=== PATIENT | female | born 1975 | race Hispanic/Latino ===

== ENCOUNTER 2016-12-03 12:15 | Day surgery (SDC) | payer OTHER ==
[~2016-12-03] VITALS: Ht 157.5 cm; Wt 132.4 kg
[~2016-12-03 12:15] MED LIST: ALBU8.5H2 INHALATION; ASPI-973 PO; Lactated Ringer's 1,000 ML IV ONE; METF500T4 PO; OMEP20CA11 PO; ONDA-54 PO; OXYC-474 PO; PRAV10TA2 PO; SPIR50TA2 PO; mirena IMPLANT; ranitidine
[2016-12-03] MEDS ORDERED: Propofol 10,000 mCg/mL 20 mL Inj ONE (12:16)
[2016-12-03 12:44] VITALS: BP 108/66; PULSE 86; RESP 17; O2SAT 95
[2016-12-03] MEDS ORDERED: MELO7.5O PO (12:49)
[2016-12-03] MEDS ORDERED: DULO30CA50 PO (12:49)
[2016-12-03] MEDS ORDERED: Lactated Ringer's 1,000 ML IV SCH (13:54)
--- NOTE | 2016-12-03 13:54 | PCM.HPANE ---
Patient Data Date of Service: Dec 03, 2016 Surgeon Admitting Provider: Attending Provider:Erik Aguilar MD Primary Care Physician:Edil Ivory MD Other Provider:Denys Jolly Anesthesia Reason for Visit Diarrhea, Epigastric Pain Ht/WT & BMI Height (Feet): 5 Height (Inches): 2 Weight (Kilograms): 132.45 Body Mass Index 53.00 Allergies Coded Allergies: No Known Drug Allergies (Verified Allergy, Unknown, 12/02/16) Past Anesthesia History Anesthesia History: Denies:: Abnormal Airway, Anesthesia Reactions, Difficult Intubation, Fam Anesthesia Reaction, Fam Malignant Hypertherm, Malignant Hyperthermia Diabetes History Hx Diabetes?: Yes Type of Diabetes: Type II Glycemic Control: Oral Medication Current Bedside Blood Glucose: 92 MRSA MRSA: No Medications Hypertension Medication: No Home Meds Incl Beta Rajiv: No Reported Medications Duloxetine 30 Mg Capsule.dr30 Mg PO DAILY Ref 0 12/03/16 Meloxicam 7.5 Mg/5 Ml Oral.susp7.5 Mg PO DAILY 30 Days Ref 0 12/03/16 Oxycodone (Roxicodone)5 Mg Tablet5 Mg PO Q4H PRN For Pain Ref 0 12/02/16 Omeprazole 20 Mg Capsule.dr20 Mg PO BID Ref 0 12/02/16 Aspirin 81 Mg Vkgdbs69 Mg PO DAILY Ref 0 12/02/16 [mirena] 20 mcg/24hr No Conflict Check20 Mcg IMPLANT DAILY 06/11/16 Spironolactone 50 Mg Jwnlzm18 Mg PO DAILY #30 TABLET Ref 0 05/17/16 [ranitidine ] No Conflict Snhmu358 Mg BID 01/09/16 Pravastatin 10 Mg Eyfhsd89 Mg PO HS Ref 0 01/09/16 Metformin 500 Mg Qehhvl659 Mg PO BID Ref 0 01/09/16 Albuterol HFA (Proair HFA)8.5 Gm Hfa.aer.ad2 Puffs INHALATION Q4H PRN For Shortness of Breath #1 INHALER 01/09/16 Discontinued Reported Medications Ondansetron 8 Mg Tablet8 Mg PO 12/02/16 Beclomethasone Dipropionate (Qvar)8.7 Gm Aer.w.adap1 Puff INHALATION BID #8.7 GM 06/12/16 Medroxyprogesterone 10 Mg Jfsrrs29 Mg PO DAILY 06/11/16 Hydrocodone-Acetaminophen 5-325 mg 1 Each Tablet1 Tablet PO Q12H PRN For Pain Ref 0 05/17/16 History History of ENT Problems?: No HEENT History: Positive for:: Dysphagia (INTERMITTENT W/ SOLID FOOD) Denies:: Abnormal Airway Difficult Intubation Hearing Problem Hx of Heart Problems?: No Cardiovascular History: Denies:: Edema Heart Murmur Irregular Heartbeat Pacemaker Hx of Respiratory Problem?: Yes Respiratory History: Positive for:: Asthma Use of C-PAP Machine Denies:: COPD Cough Dyspnea Emphysema Hemoptysis Oxygen Administration Pneumonia Tuberculosis Other Resp Pertinent History: CIERRA+ W/ NIGHTLY CPAP USE Hx Neurologic Problems?: No Neurological History: Denies:: CVA Dementia Headaches Multiple Sclerosis Parkinson's Disease Seizures Hx of GI Problems?: Yes Gastrointestinal History: Positive for:: Gastroesphageal Reflux Liver Disease (ELEVATED LFT) Rectal Bleeding (BRB) Denies:: Cirrhosis Diverticulitis Gall Bladder Disease Hiatal Hernia Hx of Problems?: No Genitourinary History: Denies:: Kidney Stones Urinary Tract Infection Female Hx: Denies:: Currently Problems with Breasts? Skin History: Denies:: History Skin Disorders? Pressure Ulcers Hx Musculoskeletal Problems?: Yes Musculoskeletal History: Positive for:: Fibromyalgia Musculoskeletal Trauma (left knee current admission problem) Denies:: Joint Replacement Hx of Psycho/Social Problems?: No Psycho Social History: Positive for:: Anxiety Hx Depression Hx Surgeries?: Yes (L KNEE ARTHRO, L SHOULDER MASS, L OVARY REMOVAL) Hx Any Other Health Problems?: Yes Other History: Denies:: Cancer Thyroid Disease History Blood Transfusions: Denies:: Blood Transfusions Hx Diabetes: YesBedside Blood Glucose: 92 Hx Alcohol Use: NoHx Substance Use: No Smoking Status: Current Every Day Smoker Have You Smoked inLast 12 mo: Yes Stop/Bang Treated for Sleep Apnea?: Yes Do You Have a CPAP Machine?: Yes (COMPLIANT W/ NIGHTLY USE) CIERRA Risk Assessment: High Risk, =/>3 Yes Risk Assessment Category Category 1A: Patient has history of documented sleep apnea, and HAS NOT received any narcotic, sedative or anesthesia administration during this stay. Category 1B: Patient has history of documented sleep apnea, and HAS received any narcotic , sedative or anesthesia administration during this stay Category 2: Patient has SUSPECTED Obstructive Sleep Apnea, and HAS received any narcotic , sedative or anesthesia administration during this stay. Category 3: Patient has SUSPECTED Obstructive Sleep Apnea and HAS NOT received narcotic, sedative or anesthesia administration during this stay. Category 4: Outpatient in Procedural Areas with known sleep apnea or who screen positive for High Risk via the STOP/BANG questionnaire. Exam Exam Vital Signs Vital Signs Date Time Temp Pulse Resp B/P Pulse Ox O2 Delivery O2 Flow Rate FiO2 12/03/16 12:44 36.6 86 17 108/66 95 Room Air General Appearance: Alert, Oriented X3, Cooperative HEENT/AIRWAY: MP 3, Neck Movement (Thick), Mouth Opening (Wide) Lungs: Clear to Auscultation, Normal Air Movement Heart: Regular Rate/Rhythm, Normal S1, Normal S2 Meds/Labs/Diagnostics Bedside Blood Glucose: 92 Plan Impression Patient chart reviewed, patient interviewed and anesthestic plan with risks, benefits, and alternatives discussed, and informed consent obtained. NPO Status: 06/11/16 ASA Physical Status: ASA3 Severe Disease Anesthetic Plan: MAC Bene/Risks/Altern/Consents: Yes HP Complete Prior to Induction: Yes Chito Song MD Dec 03, 2016 13:53
[2016-12-03] MEDS ORDERED: Ondansetron 2 mg/mL 2 mL Inj IVPUSH PRN (13:55)
[2016-12-03] MEDS ORDERED: MetoCLOpramide 5 mg/mL 2 mL Inj IVPUSH PRN (13:55)
[2016-12-03 14:35] VITALS: BP 105/78; PULSE 104; RESP 20; O2SAT 100
--- NOTE | 2016-12-03 14:38 | PCM.ANEP1 ---
Post Anesthesia Phase 1 PACU Phase 1 Assessment Date of Service: Dec 03, 2016 Vital Signs Vital Signs Date Time Temp Pulse Resp B/P Pulse Ox O2 Delivery O2 Flow Rate FiO2 12/03/16 14:35 35.7 104 20 105/78 100 OxyMask 10 12/03/16 12:44 36.6 86 17 108/66 95 Room Air Anesthetic Administered: MAC Level of Alertness: Sleepy, easy to arouse GRIFFIN's with Equal Strength: Yes Pain: No Nausea or Vomiting: No Oxygen Delivery: Simple Mask Lungs: Normal Air Movement Chito Song MD Dec 03, 2016 14:38
--- NOTE | 2016-12-03 14:43 | PCM.ANEP2 ---
Post Anesthesia Evaluation ASA/CMS Post Anesthesia Date of Service: Dec 03, 2016 VS in Patient's Normal Range?: Yes Resp Stable; Airway Patent?: Yes CV Function & Hydration Stable: Yes Mental Status Recovered?: Yes Pain control Satisfactory?: Yes N/V Control Satisfactory?: Yes Chito Song MD Dec 03, 2016 14:43
[2016-12-03 14:44] VITALS: BP 123/66; PULSE 94; RESP 16; O2SAT 98
[2016-12-03 14:51] VITALS: BP 88/70; PULSE 94; RESP 14; O2SAT 100
--- NOTE | 2016-12-03 14:53 | ENDO ---
[address] [address] ENDOSCOPY PROCEDURE PATIENT: AMIRA JUDGE : 1975 MR#: [id number] ADMIT: 12/03/2016 JOB ID: [id number] DATE: 12/03/2016 TYPE OF OPERATION: 1. Esophagogastroduodenoscopy with biopsy. 2. Colonoscopy with biopsy. PREOPERATIVE DIAGNOSIS(ES): 1. Abdominal pain. 2. GERD. 3. Diarrhea. POSTOPERATIVE DIAGNOSIS(ES): 1. Normal upper endoscopy, status post biopsy. 2. Small internal hemorrhoids. ANESTHESIA: Monitored anesthesia care. COMPLICATIONS: None. BLOOD LOSS: Minimal. DESCRIPTION OF PROCEDURE: After risks and benefits have been explained to the patient, informed consent was obtained. After anesthesia administered, upper endoscope was then inserted into the mouth and intubated into the esophagus, stomach, second portion of duodenum. Mucosa carefully examined. After procedure was done, the scope withdrawn and procedure terminated. A colonoscope was then inserted from the rectum to the terminal ileum. Mucosa carefully examined. Prep of the patient was excellent. After procedure was done, the scope withdrawn and procedure terminated. FINDINGS: Upon inspection of the esophagus, the esophagus was normal without masses, ulcers or lesions. Z-line located 40 cm from incisors. Upon entering the stomach, the stomach was also normal without masses, ulcers or lesions. Retroflexion was normal. Duodenal bulb, first and second portion normal. Biopsies taken of the duodenum, antrum and body of the stomach and mid and distal esophagus. Upon inspection of the anus, no masses, hemorrhoids, ulcers or fissures that were seen. Throughout the entire examination, there were there were no polyps, masses or lesions. Biopsies taken of the terminal ileum and random colon. Retroflexion showed small internal hemorrhoids. IMPRESSION: 1. Small internal hemorrhoids. 2. Normal upper endoscopy, status post biopsy. RECOMMENDATION: Await pathology results. Followup in GI clinic as needed.
--- NOTE | 2016-12-05 16:19 | PATH ---
SURGICAL PATHOLOGY Attending Physician:Erik Aguilar MD CASE STATUS: Signed Out PATIENT NAME: AMIRA JUDGE PID: [id number] : 1975 DATE COLLECTED:12/03/2016 00:00 SPECIMEN: 1: Duodenum, Biopsy 2: Stomach, Antrum, Biopsy 3: Gastric, Biopsy 4: Esophagus, Biopsy 5: Small Intestine/Bowel, Biopsy 6: Colon, Biopsy CLINICAL HISTORY: 1). DUODENAL BX 2). ANTRUM BX 3). GASTRIC BX 4). DISTAL ESOPHAGUS 5). TI BX 6). RANDOM COLON BX FINAL DIAGNOSIS: 1. Duodenal Biopsy: Duodenal mucosa with no diagnostic alterations. Negative for inflammation, celiac, dysplasia and malignancy. 2. Antrum, Biopsy: Gastric antral mucosa with no diagnostic alterations. Negative for Helicobacter organisms. Negative for intestinal metaplasia. Negative for dysplasia and malignancy. 3. Gastric Biopsy: Gastric body mucosa with no diagnostic alterations. Negative for intestinal metaplasia. Negative for Helicobacter organisms. Negative for dysplasia and malignancy. 4. Distal Esophagus, Biopsy: Esophageal squamous mucosa with mild chronic inflammation. Negative for intestinal metaplasia. Negative for dysplasia and malignancy. Eosinophils are not increased. 5. TI biopsy: Small bowel mucosa with no diagnostic alterations. Negative for inflammation, granulomas, dysplasia and malignancy. 6. Random Colon Biopsy: Colonic mucosa with no diagnostic alterations. Negative for inflammation, dysplasia and malignancy. ICD10: R10.9 GROSS DESCRIPTION: The specimen is received in six formalin filled containers labeled with the patient's name. 1). The specimen is sublabeled "duodenal" and consists of a 0.4 x 0.3 x 0.3 CM portion of tissue which is entirely submitted in cassette 1A. 2). The specimen is sublabeled "antrum" and consists of a 0.3 x 0.3 x 0.3 CM portion of tissue which is entirely submitted in cassette 2A. 3). The specimen is sublabeled "gastric" and consists of a 0.4 x 0.3 x 0.2 CM portion of tissue which is entirely submitted in cassette 3A. 4). The specimen is sublabeled "distal esophagus" are 2 fragments of tissue which aggregate to 0.4 x 0.3 x 0.2 CM. The specimen is entirely submitted in cassette 4A. 5). The specimen is sublabeled " TI " and consists of a 0.4 x 0.4 x 0.3 CM portion of tissue which is entirely submitted in cassette 5A. 6). The specimen is sublabeled "random colon" and consists of 5 portions of tissue which aggregate to 0.6-0.6 x 0.3 CM. The specimen is entirely submitted in cassette 6A. 12/04/2016 DAC MICRO DESCRIPTION: Please see diagnosis. ICD-9 CODES: CPT CODES: 1: 14105 2: 15945 3: 04774 4: 80869 5: 43727 6: 11387 Electronically Signed Out Maribel Lawson MD [facility] [address], [place] [address] Technical component performed at [facility], [facility] [address], [place], [address]
[2017-01-02] MEDS ORDERED: DICY10CA56 PO (11:21)
[2017-01-02] MEDS ORDERED: ZOF8 PO (11:21)
== END 2016-12-03 23:59 | disposition home or self-care (01) ==
LOC: END 12:15
PROVIDERS: ATTEND Internal Medicine Gastroenterology
DX: R10.31 Right lower quadrant pain (principal); K62.5 Hemorrhage of anus and rectum; R19.7 Diarrhea, unspecified; K64.8 Other hemorrhoids; K21.9 Gastro-esophageal reflux disease without esophagitis; G47.33 Obstructive sleep apnea (adult) (pediatric); E11.9 Type 2 diabetes mellitus without complications; I10 Essential (primary) hypertension; E66.01 Morbid (severe) obesity due to excess calories; F32.9 Major depressive disorder, single episode, unspecified; F41.9 Anxiety disorder, unspecified; F17.210 Nicotine dependence, cigarettes, uncomplicated; Z79.82 Long term (current) use of aspirin; Z79.84 Long term (current) use of oral hypoglycemic drugs; Z68.43 Body mass index [BMI] 50.0-59.9, adult; J45.909 Unspecified asthma, uncomplicated
CPT/HCPCS: 43239; 45380; 99153; G0500; J7120

== ENCOUNTER 2017-01-03 11:27 | Day surgery (SDC) | payer OTHER ==
[2017-01-03] VITALS (10 sets, daily range): BP systolic 103–141; BP diastolic 53–89; PULSE 77–108; RESP 12–19; O2SAT 97–100
[~2017-01-03] VITALS: Ht 157.5 cm; Wt 132.8 kg
[~2017-01-03 11:27] MED LIST changes: +DICY10CA56 PO; +DULO30CA50 PO; -Lactated Ringer's 1,000 ML IV ONE; -ONDA-54 PO; +ZOF8 PO; -ranitidine
[2017-01-03] MEDS ORDERED: Rocuronium 10 mg/mL 5 mL Inj ONE (11:28)
[2017-01-03] MEDS ORDERED: Ondansetron 2 mg/mL 2 mL Inj ONE (11:28)
[2017-01-03] MEDS ORDERED: Dexamethasone 4 mg/mL Inj ONE (11:28)
[2017-01-03] MEDS ORDERED: Succinylcholine Chloride 20 mg/mL 5 mL Inj ONE (11:28)
[2017-01-03] MEDS ORDERED: Propofol 10,000 mCg/mL 20 mL Inj ONE (11:28)
[2017-01-03] MEDS ORDERED: Remifentanil 1 mg/3 mL Inj ONE (11:28)
[2017-01-03] MEDS ORDERED: fentaNYL-PF 50 mCg/mL 2 mL Inj ONE ×2 (11:28→18:20)
[2017-01-03] MEDS: Lactated Ringer's 1,000 ML IV SCH ×2 (12:00→16:03)
[2017-01-03] MEDS ORDERED: Lactated Ringer's 1,000 ML IV SCH (16:06)
[2017-01-03] MEDS ORDERED: Lactated Ringer's 500 ML IV PRN (16:06)
--- NOTE | 2017-01-03 16:06 | PCM.HPANE ---
Patient Data Surgeon Admitting Provider: Attending Provider:Soham Scott MD Primary Care Physician:Edil Ivory MD Other Provider:Denys Jolly Anesthesia Reason for Visit Abnormal Uterine Bleeding Ht/WT & BMI Height (Feet): 5 Height (Inches): 2.00 Weight (Kilograms): 132.8 Body Mass Index 53.00 Allergies Coded Allergies: No Known Drug Allergies (Verified Allergy, Unknown, 01/02/17) Past Anesthesia History Anesthesia History: Denies:: Abnormal Airway, Anesthesia Reactions, Difficult Intubation, Fam Anesthesia Reaction, Fam Malignant Hypertherm, Malignant Hyperthermia Diabetes History Hx Diabetes?: Yes Type of Diabetes: Type II Glycemic Control: Oral Medication Current Bedside Blood Glucose: 97 MRSA MRSA: No Medications Blood Thinner: Aspirin Hypertension Medication: Yes (SPIRONALACTONE FOR PCOS) Home Meds Incl Beta Rajiv: No Reported Medications Dicyclomine (Bentyl)10 Mg Xxdotxw24 Mg PO QID PRN PRN 01/02/17 Ondansetron (Zofran)8 Mg Tablet8 Mg PO Q6H PRN For Nausea 01/02/17 Duloxetine 30 Mg Capsule.dr30 Mg PO DAILY Ref 0 12/03/16 Oxycodone (Roxicodone)5 Mg Tablet5 Mg PO Q4H PRN For Pain Ref 0 12/02/16 Omeprazole 20 Mg Capsule.dr20 Mg PO BID Ref 0 12/02/16 Aspirin 81 Mg Bhuvji64 Mg PO DAILY Ref 0 12/02/16 [mirena] 20 mcg/24hr No Conflict Check20 Mcg IMPLANT DAILY 20mcg/24h 06/11/16 Spironolactone 50 Mg Wgftlc89 Mg PO DAILY #30 TABLET Ref 0 05/17/16 Pravastatin 10 Mg Ljnjfw91 Mg PO HS Ref 0 01/09/16 Metformin 500 Mg Jinidt418 Mg PO BID Ref 0 01/09/16 Albuterol HFA (Proair HFA)8.5 Gm Hfa.aer.ad2 Puffs INHALATION Q4H PRN For Shortness of Breath #1 INHALER 01/09/16 Discontinued Reported Medications Meloxicam 7.5 Mg/5 Ml Oral.susp7.5 Mg PO DAILY 30 Days Ref 0 12/03/16 [ranitidine ] No Conflict Kfjmt515 Mg BID 01/09/16 History History of ENT Problems?: Yes HEENT History: Positive for:: Dysphagia (INTERMITTENT W/ SOLID FOOD) Denies:: Abnormal Airway Difficult Intubation Hearing Problem Hx of Heart Problems?: Yes Cardiovascular History: Positive for:: Chest Pain (EKG WNL) Hypertension (hyperlipidemia) Denies:: Edema Heart Murmur Irregular Heartbeat Pacemaker Hx of Respiratory Problem?: Yes Respiratory History: Positive for:: Asthma Use of C-PAP Machine (CIERRA+ W/ CPAP SLEEP STUDY 11/2015) Use of Inhalers / NEBS Denies:: COPD Cough Dyspnea Emphysema Hemoptysis Oxygen Administration Pneumonia Tuberculosis Hx Neurologic Problems?: Yes Neurological History: Denies:: CVA Dementia Headaches Multiple Sclerosis Parkinson's Disease Seizures Other Neurological Pertinent: RLS Hx of GI Problems?: Yes Gastrointestinal History: Positive for:: Gastroesphageal Reflux Liver Disease (HX ELEVATED LFT'S) Rectal Bleeding (BRB (LIKELY FROM SMALL INTERNAL HEMORRHOIDS)) Denies:: Cirrhosis Diverticulitis Hiatal Hernia Hx of Problems?: No Genitourinary History: Denies:: Kidney Stones Urinary Tract Infection Female Hx: Denies:: Currently Problems with Breasts? Skin History: Positive for:: History Skin Disorders? Denies:: Pressure Ulcers Hx Musculoskeletal Problems?: Yes Musculoskeletal History: Positive for:: Fibromyalgia Musculoskeletal Trauma (S/P LT KNEE SCOPE/MENISECTOMY) Denies:: Joint Replacement Hx of Psycho/Social Problems?: Yes Psycho Social History: Positive for:: Anxiety Hx Depression Hx Surgeries?: Yes (L KNEE ARTHRO, L SHOULDER MASS, L OVARY REMOVAL) Hx Any Other Health Problems?: Yes Other History: Denies:: Cancer Endocrine Disease Hospitalization Thyroid Disease History Blood Transfusions: Denies:: Blood Transfusions Hx Diabetes: YesBedside Blood Glucose: 97 Hx Alcohol Use: NoHx Substance Use: No Smoking Status: Light Tobacco Smoker Have You Smoked inLast 12 mo: Yes Stop/Bang S-Snoring: Do You Snore Loudly: Yes T-Tired: feel tired, fatigued: Yes O-Obsered: Observed not breath: Yes P-Blood Pressure: treated: Yes B- Body Mass Index > 35 kg/m2: Yes A- Age over 50: No N- Neck Large Circumference: Yes G- Gender Male: No CIERRA Total Score: 6 CIERRA Risk Assessment: High Risk, =/>3 Yes Risk Assessment Category Category 1A: Patient has history of documented sleep apnea, and HAS NOT received any narcotic, sedative or anesthesia administration during this stay. Category 1B: Patient has history of documented sleep apnea, and HAS received any narcotic , sedative or anesthesia administration during this stay Category 2: Patient has SUSPECTED Obstructive Sleep Apnea, and HAS received any narcotic , sedative or anesthesia administration during this stay. Category 3: Patient has SUSPECTED Obstructive Sleep Apnea and HAS NOT received narcotic, sedative or anesthesia administration during this stay. Category 4: Outpatient in Procedural Areas with known sleep apnea or who screen positive for High Risk via the STOP/BANG questionnaire. Exam Exam Vital Signs Vital Signs Date Time Temp Pulse Resp B/P Pulse Ox O2 Delivery O2 Flow Rate FiO2 01/03/17 11:47 36.5 90 18 103/58 98 Room Air General Appearance: Alert, Oriented X3, Cooperative, No Acute Distress HEENT/AIRWAY: MP 3 Lungs: Clear to Auscultation, Normal Air Movement Heart: Exam Unremarkable, Regular Rate/Rhythm, No Murmurs/Rubs/Gallops Meds/Labs/Diagnostics Admission Meds Current Medications Lactated Ringer's (Lr) 1,000 ml @ 120 mls/hr Q8H20M IV Last administered on t 12:00; Start 01/03/17 at 05:00; Stop 01/03/17 at 13:19 Bedside Blood Glucose: 97 Plan Impression Patient chart reviewed, patient interviewed and anesthestic plan with risks, benefits, and alternatives discussed, and informed consent obtained. NPO Status: 01/02 at 2300 ASA Physical Status: ASA3 Severe Disease Anesthetic Support Modalities: [place] Scope Anesthetic Plan: GA Bene/Risks/Altern/Consents: Yes HP Complete Prior to Induction: Yes Mauricio Chavira MD Jan 03, 2017 12:30
[2017-01-03] MEDS ORDERED: fentaNYL-PF 50 mCg/mL 2 mL Inj IVPUSH PRN (16:10)
[2017-01-03] MEDS ORDERED: hydrALAZINE 20 mg/mL Inj IVPUSH PRN (16:10)
[2017-01-03] MEDS ORDERED: Labetalol 5 mg/mL 4 mL Inj IV PRN (16:10)
[2017-01-03] MEDS ORDERED: HYDROmorphone 1 mg/mL Inj IVPUSH PRN (16:10)
[2017-01-03] MEDS ORDERED: Phenylephrine 10,000 mCg/mL Inj IVPUSH PRN (16:10)
[2017-01-03] MEDS ORDERED: EPHEDrine Sulfate 50 mg/mL Inj IVPUSH PRN (16:10)
[2017-01-03] MEDS ORDERED: MetoCLOpramide 5 mg/mL 2 mL Inj IVPUSH PRN ×2 (16:10→18:10)
[2017-01-03] MEDS ORDERED: Atropine 0.4 mg/mL Inj IVPUSH PRN (16:10)
[2017-01-03] MEDS ORDERED: Ondansetron 2 mg/mL 2 mL Inj IVPUSH PRN ×2 (16:10→18:10)
[2017-01-03] MEDS ORDERED: diphenhydrAMINE 25 mg Capsule PO PRN (18:10)
--- NOTE | 2017-01-03 18:10 | PCM.DIMED ---
Discharge Instructions Date of Service Jan 03, 2017 Dates of Hospitalization Diet No restrictions Activity No restrictions Call your provider Fever or Chills, Shortness of breath, Bleeding, Chest pain, Vomitting, Excessive diarrhea Patient Instructions Follow-up with PCP in: 2 weeks Soham Scott MD Jan 03, 2017 18:10
--- NOTE | 2017-01-03 18:29 | PCM.ANEP1 ---
Post Anesthesia Phase 1 PACU Phase 1 Assessment Vital Signs Vital Signs Date Time Temp Pulse Resp B/P Pulse Ox O2 Delivery O2 Flow Rate FiO2 01/03/17 18:25 36.3 86 16 136/53 97 Room Air 01/03/17 18:20 93 14 125/63 97 Room Air 01/03/17 18:15 99 12 119/72 97 Room Air 01/03/17 18:10 95 19 130/64 100 Simple Mask 10 01/03/17 18:05 100 13 141/62 99 Simple Mask 10 01/03/17 18:00 36.2 108 18 139/64 100 Simple Mask 15 01/03/17 11:47 36.5 90 18 103/58 98 Room Air Anesthetic Administered: GA Level of Alertness: Awake, talking GRIFFIN's with Equal Strength: Yes Pain: No Nausea or Vomiting: No Oxygen Delivery: Simple Mask Lungs: Clear to Auscultation, Normal Air Movement Mauricio Chavira MD Jan 03, 2017 18:29
--- NOTE | 2017-01-03 18:33 | PCM.ANEP2 ---
Post Anesthesia Evaluation ASA/CMS Post Anesthesia VS in Patient's Normal Range?: Yes Resp Stable; Airway Patent?: Yes CV Function & Hydration Stable: Yes Mental Status Recovered?: Yes Pain control Satisfactory?: Yes N/V Control Satisfactory?: Yes Mauricio Chavira MD Jan 03, 2017 18:33
[2017-01-03] MEDS: oxyCODONE-Acetamin 5-325 mg Tablet PO PRN ×2 (18:41→19:01)
--- NOTE | 2017-01-03 19:41 | OP ---
[address] [address] OPERATIVE REPORT PATIENT: AMIRA JUDGE : 1975 MR#: [id number] ADMIT: 01/03/2017 JOB ID: [id number] DATE OF SURGERY: 01/03/2017 PROCEDURE: Operative hysteroscopy with endometrial curettage using MyoSure instrument and NovaSure endometrial ablation. PREOPERATIVE DIAGNOSIS(ES): Morbid obesity. Abnormal uterine bleeding. POSTOPERATIVE DIAGNOSIS(ES): Morbid obesity. Abnormal uterine bleeding. SURGEON: Soham Scott MD. ANESTHESIA: Mauricio Chavira MD, general endotracheal. ESTIMATED BLOOD LOSS: 10 mL. ESTIMATED URINE OUTPUT: 50 mL. ESTIMATED FLUIDS: 800 mL of lactated Ringer. Fluid deficit using MyoSure, hysteroscopy, and endometrial curetting was 1050 mL. COMPLICATIONS: None. FINDINGS: Normal appearance of perineum, vagina, and the cervix. The uterus sounded to 9 cm. There was hypertrophied endometrium, no polyps no fibroids were seen. PROCEDURE: The patient was brought to the operating room, where she underwent general anesthesia without difficulties. She was placed in a dorsal lithotomy position using Heath stirrups. The patient was prepped and draped in usual surgical fashion. Time-out was performed verifying correct patient, correct procedure. Two Galindo retractors were placed into the vagina. The cervix was visualized and grasped with a tenaculum. Using Hegar dilators, it was dilated to 7 mm. Using a hysteroscope, the endometrial cavity was reviewed with the findings mentioned above. With my MyoSure tissue removal device the endometrial curetting was performed and the specimen endometrium was sent to Pathology. MyoSure instrument was removed. Cavity assessment was done using NovaSure device. The uterus measured 4.5 cm for the length and 2.7 cm for the width. After cavity assessment was completed, ablation cycle was started and was completed successfully in 1 minute and 39 seconds. NovaSure instrument was removed and hysteroscopy was performed, again showing ablated area of the endometrium throughout the uterus. All the instruments were removed. There was slight bleeding on the point of the cervix where the tenaculum was inserted that was controlled with application of silver nitrate sticks. Good hemostasis was achieved. The patient was repositioned back into the supine position. She tolerated the procedure well and was transferred to the recovery room in a stable condition.
--- NOTE | 2017-01-07 12:38 | PATH ---
SURGICAL PATHOLOGY Attending Physician:Soham Scott MD CASE STATUS: Signed Out PATIENT NAME: AMIRA JUDGE PID: [id number] : 1975 DATE COLLECTED:01/03/2017 23:44 SPECIMEN: Endometrium, Biopsy CLINICAL HISTORY: AUB 1). ENDOMETRIUM FINAL DIAGNOSIS: 1.ENDOMETRIAL BIOPSY: SECRETORY ENDOMETRIUM. NO EVIDENCE OF MALIGNANCY OR HYPERPLASIA. ICD10 CODE N92.0 GROSS DESCRIPTION: The specimen is received in one formalin filled container labeled with the patient's name, sublabeled "endometrium" and consists of multiple portions of tissue and clotted blood which aggregate to 3.0 x 3.0 x 0.7 CM. The specimen is entirely submitted in 3 cassettes. 01/04/2017 [facility] MICRO DESCRIPTION: See diagnosis. ICD-9 CODES: CPT CODES: 1: 17679 Electronically Signed Out Mirza Cobb MD [facility] [address], [place] [address] Technical component performed at [facility], [facility] [address], [address]
== END 2017-01-03 23:59 | disposition home or self-care (01) ==
LOC: SAS 11:27
PROVIDERS: ATTEND Legal Medicine
DX: N93.9 Abnormal uterine and vaginal bleeding, unspecified (principal); I10 Essential (primary) hypertension; F41.9 Anxiety disorder, unspecified; E11.9 Type 2 diabetes mellitus without complications; F32.9 Major depressive disorder, single episode, unspecified; K21.9 Gastro-esophageal reflux disease without esophagitis; J45.909 Unspecified asthma, uncomplicated; G47.33 Obstructive sleep apnea (adult) (pediatric); M79.7 Fibromyalgia; F17.210 Nicotine dependence, cigarettes, uncomplicated; E66.01 Morbid (severe) obesity due to excess calories; Z68.43 Body mass index [BMI] 50.0-59.9, adult; Z79.84 Long term (current) use of oral hypoglycemic drugs; Z79.82 Long term (current) use of aspirin
CPT/HCPCS: 58558; J0330; J1100; J2405; J3010; J7120

== ENCOUNTER 2017-02-22 22:28 | Emergency (ER) | payer OTHER ==
[~2017-02-22] VITALS: Ht 160 cm; Wt 131.8 kg
[~2017-02-22 22:28] MED LIST changes: -OXYC-474 PO; -mirena IMPLANT
[2017-02-22 22:31] VITALS: BP 158/96; PULSE 110; RESP 20; O2SAT 97
[2017-02-22] MEDS ORDERED: GABA-502 PO (22:35)
--- NOTE | 2017-02-22 23:00 | ED.REPORT ---
HPI-Abd Pain F 40 and Over Date of Service Feb 22, 2017 ED Provider: Kwame Brady DO A 41 year old female with a history of polycystic ovarian disease, hyperlipidemia, high cholesterol, smoking, diabetes, uterine ablation and anxiety presents to the ED complaining of back and chest pain. The back pain is concentrated between her shoulders and has been intermittently present for two weeks. The pain is not exacerbated by deep breathing or movement and began radiating to her chest today. The pt is not sure what initially caused the pain and denies any heavy lifting. The pt had a uterine ablation in 12/2016 and noticed spotting beginning last week. This was accompanied by pain in her groin. She took half of a pain pill but this did not relieve her symptoms. The pt also admits to one episode of diarrhea but denies nausea or vomiting. Nursing Notes Stated Complaint: CHEST PAIN Chief Complaint: Chest Pain Nursing Notes Reviewed: Yes Allergies: Coded Allergies: No Known Drug Allergies (Verified Allergy, Unknown, 02/22/17) Scheduled Gabapentin (Gabapentin) 300 Mg Capsule 300 MG PO BID Metformin (Metformin) 500 Mg Tablet 500 MG PO BID Omeprazole (Omeprazole) 20 Mg Capsule.dr 20 MG PO BID Pravastatin (Pravastatin) 10 Mg Tablet 10 MG PO HS Spironolactone (Spironolactone) 50 Mg Tablet 50 MG PO DAILY Scheduled PRN Albuterol HFA (Proair HFA) 8.5 Gm Hfa.aer.ad 2 PUFFS INHALATION Q4H PRN PRN For Shortness of Breath Dicyclomine (Bentyl) 10 Mg Capsule 20 MG PO QID PRN PRN PRN General Time Seen by MD: 23:00 Chief Complaint Other (Back pain) Hx Obtained From: Patient Arrived By: Walk-in Sudden in Onset?: No Onset Occurred: More than a week ago... Symptom Duration: Intermittent Recent Healthcare: No recent hospitalization, Recent doctor visit Similar Sx Previous: No Past Medical History Past Medical History diabetes hyperlipidemia anxiety polycistic ovarian disease high cholesterol Reports: Asthma Past Surgical History knee surgery left ovarian removal left shoulder mass uterine ablation Smoking History Current Every Day Smoker, Light Tobacco Smoker Social History Alcohol Use: Denies alcohol use Drug Use: Denies drug use Other Social History: Local resident Occupation lives with family, work for [employer] at [employer] Ambulatory Status Independent Review of Systems Constitutional: Denies: Fever Respiratory: Denies: Non-productive cough, Pleuritic pain, Shortness of breath Cardiovascular: Reports: Chest pain GI: Reports: Diarrhea, Denies: Nausea, Vomiting Female: Reports: Vaginal bleeding - abnl Musculoskeletal: Reports: Back pain Complete sys rev & neg: except as marked. Physical Exam Vital Signs Vital Signs (First) Date Time Temp Pulse Resp B/P Pulse Ox O2 Delivery O2 Flow Rate FiO2 02/22/17 22:31 36.8 110 20 158/96 97 Room Air Initial VS: Reviewed General/Constitutional: Awake, Alert Respiratory / Chest: Atraumatic, Breath sounds NL, Breath sounds = bilat, No respiratory distress Cardiovascular: Heart rate NL, Regular rhythm, Heart sounds NL Abdomen: Atraumatic, Soft tender RUQ Back: Atraumatic, Full range of motion Head / Eyes: Atraumatic, Normocephalic, PERRL, EOMI ENT: Atraumatic, Airway patent, Mucous membranes moist Skin: Atraumatic, Color NL, No rash, Warm, Dry Neurologic: Oriented X3, Speech NL, No motor deficits, No sensory deficits Neck: Atraumatic, Supple, Full range of motion Upper Extremity / MS: Atraumatic, Full range of motion Lower Extremity / Pelvis / MS: Atraumatic, Full range of motion Psychiatric: Affect NL, Mood NL Interpretation & Diagnostics Interpretation & Diagnostics: US Abdomen: IMPRESSION: 1. No ultrasound evidence of cholelithiasis or cholecystitis. 2. Reverberation artifact from the anterior wall of the gallbladder, gallbladder adenomyomatosis is favored. CT Pulmonary Angiogram: IMPRESSION: No evidence for PE. 5 mm right middle lobe lung nodule. As per Fleischner Society guidelines for follow-up and management of pulmonary nodules: For patients at low risk (minimal or absent history of smoking and of other known risk factors), recommend follow-up chest CT at 12 months; if unchanged, no further follow-up. For patient at high risk (history of smoking or of other known risk factors), recommend initial follow-up chest CT at 6-12 months, then at 18-24 months if no interval change. Lab Results Interpretation Result Diagram: 02/22/17 2254 02/22/17 2254 Test 02/22/17 22:54 02/23/17 02:00 White Blood Count 6.5th/mm3 (3.8-10.1) Red Blood Count 4.75mil/mm3 (3.90-5.20) Hemoglobin 11.1g/dL (12.0-15.6) Hematocrit 36.5% (35.0-46.0) Mean Corpuscular Volume 76.8fL (81-100) Mean Corpuscular Hemoglobin 23.4pg (27.0-35.0) Mean Corpuscular Hemoglobin Concent 30.4% (32.0-37.0) Red Cell Distribution Width 16.9% (12.3-15.4) Platelet Count 267bil/L (150-400) Neutrophils (%) (Auto) 61.9% (40-74) Lymphocytes (%) (Auto) 31.1% (14-46) Monocytes (%) (Auto) 4.3% (4-12) Eosinophils (%) (Auto) 2.3% (0-5) Basophils (%) (Auto) 0.2% (0-3) D-Dimer 0.51mg/L FEU (<0.50) Sodium Level 140mEq/L (134-144) Potassium Level 3.5mEq/L (3.5-5.2) Chloride Level 102mEq/L (97-108) Carbon Dioxide Level 22mmol/L (18-29) Blood Urea Nitrogen 17mg/dL (6-24) Creatinine 0.82mg/dL (0.57-1.00) Estimat Glomerular Filtration Rate 110mL/min (>59) Glucose Level 118mg/dL (60-99) Calcium Level 9.0mg/dL (8.5-10.1) Magnesium Level 1.8mg/dL (1.6-2.6) Total Bilirubin 0.2mg/dL (0.0-1.2) Aspartate Amino Transf (AST/SGOT) 19U/L (0-50) Alanine Aminotransferase (ALT/SGPT) 25U/L (0-32) Alkaline Phosphatase 86U/L (25-150) Total Protein 7.3g/dL (6.4-8.4) Albumin 4.4g/dL (3.4-5.0) HCG Beta Subunit < 0.500mIU/mL Hold Silva Top Tube Received (Received) Troponin T 0.010ug/L (0.0-0.011) ECG Interpretation ECG Interpretation: normal sinus rhythm with a rate of 87 Time: 23:03 Interpreted by: ED physician X-Ray Chest Interpretation Chest Xray Interpretation: no pneumothorax mediastinum not widened no acute findings Interpretation / Wet Read by: Wet read ED physician Pulse Oximetry Interpretation Pulse Oximetry Interpretation: 97% on room air Pulse Oximetry: Pulse Ox normal Re-Eval/Medical Decision Med Decision/Clinical Course Patient presents with interscapular thoracic pain. She was tender in the right upper quadrant. Respiratory exam is benign. Acute cholecystitis was ruled out. She does have a gallbladder wall abnormality that will need follow-up. Aortic dissection, pulmonary emboli and myocardial infarction were ruled out based on history, physical, risk and diagnostics. Pain was resolved completely with a single dose of opiates. At discharge had normal vitals, blood pressure equal in her limbs and a normal heart rate. She was essentially pain-free. She is going to have close follow-up of the pulmonary nodule that was identified as well as the gallbladder abnormality and her chest pain. Short course of Percocet prescribed for pain. Routine opiate warnings given Source of Hx: Old records Re-Evaluation/Progress #1: Time of Eval: 00:15 Patient Status: Condition improved Re-Evaluation/Progress Note: Pt rechecked, who is resting comfortably. She is informed of US results and the need for CT scan. Re-Evaluation/Progress #2: Time of Eval: 01:38 Patient Status: Condition improved Re-Evaluation/Progress Note: Pt rechecked, who is resting. She is informed of her CT results. The plan for discharge pending normal troponin is discussed. The pt understands and agrees with the plan. All questions are addressed at this time. Counseled Regarding: Diagnosis, Lab results, Need for follow-up, When/why to return to ED Discharge & Departure Primary Impression: Chest pain Chest pain type: unspecified Qualified Code: R07.9 - Chest pain, unspecified Additional Impressions: Abnormal gallbladder ultrasound Pulmonary nodule Disposition: Home Discharge Condition All VS Reviewed: Yes Condition: Stable Patient Instructions: Chest Pain (ED) Additional Instructions: Your CT scan indicated a lung nodule and your ultrasound showed a gallbladder adenomyomatosis. Call your primary care physician in the morning to arrange a follow up appointment next week. Also call Dr. Palmer to arrange a follow up appointment to address your gallbladder. Regarding the lung nodule it is recommended that you have a follow up CT at 6-12 months, then at 18-24 months if there is no interval change. Regarding the chest pain: Her EKG was normal, the serial cardiac enzymes were normal. Myocardial infarction seems very unlikely. Discussed this with her primary care physician as well. If symptoms persist you may need a stress test. He may take 1-2 Percocet every 6 hours as needed for the back pain. Do not drive or drink alcohol or consume acetaminophen while taking the Percocet. Return to the emergency department if you develop any new or worsening symptoms. Referrals: Edil Ivory MD (PCP) Thong Palmer MD Attestation Portions of this note were transcribed by Gerry Hernandez. I, Dr. Brady personally performed the history, physical exam and medical decision-making; I reviewed and confirmed the accuracy of the information in the transcribed note. Signed by: Cher Mcconnell, 02/23/17 and 0241. copies to: Edil Ivory MD; Thong Palmer MD, Todd P DO Feb 22, 2017 23:00 GERRY HERNANDEZ Feb 22, 2017 23:10
[2017-02-22 23:09] LABS: BASOPHILS % (AUTO) 0.2 % (0-3); EOSINOPHILS % (AUTO) 2.3 % (0-5); MONOCYTES % (AUTO) 4.3 % (4-12); Mean Corpuscular Hemoglobin 23.4 pg (27.0-35.0); Mean Corpuscular Volume 76.8 fL (81-100); NEUTROPHILS % (AUTO) 61.9 % (40-74); Platelet Count 267 bil/L (150-400)
[2017-02-22 23:31] LABS: TROPONIN T 0.01 ug/L (0.0-0.011)
[2017-02-22 23:42] LABS: Magnesium 1.8 mg/dL (1.6-2.6)
[2017-02-22] MEDS ORDERED: HYDROmorphone 0.5 mg/0.5 mL iSecure Syringe IVPUSH PRN (23:45)
[2017-02-22] MEDS ORDERED: Ondansetron 2 mg/mL 2 mL Inj IVPUSH PRN (23:45)
[2017-02-23 00:26] VITALS: BP 114/71; PULSE 90; RESP 16; O2SAT 97
[2017-02-23] MEDS ORDERED: _oxyCODONE/APAP 5-325 mg Tablet PO PRN (01:45)
[2017-02-23 02:56] VITALS: BP 117/69; PULSE 85; RESP 16; O2SAT 96
--- NOTE | 2017-02-23 08:17 | DRSVH ---
PROCEDURE: CT ANGIO CHEST PULMONARY EMBOLISM ([id number]) INDICATIONS: chest pain, intrascapular pain TECHNIQUE: After the administration of intravenous contrast, 2 mm thick sections acquired from the pulmonary api funmilayo to the posterior costophrenic angles. 3-dimensional maximum intensity projection (MIP) coronal a nd sagittal reformats were then acquired through the thorax. For radiation dose reduction, the follo wing was used: automated exposure control, adjustment of mA and/or kV according to patient size. COMPARISON: None. FINDINGS: Image quality: Excellent. Pulmonary arteries: Pulmonary arteries are normal in size, and demonstrate no intraluminal filling d efects to suggest central pulmonary embolism. Lungs and pleura: Lungs are clear. There is a 6 mm in maximum diameter ground glass nodule in the ri ght middle lobe. No pleural effusions or pneumothorax. Central and peripheral airways are patent. Mediastinum: Heart size is normal, without pericardial effusion. No mediastinal or hilar adenopathy . Thoracic aorta is normal in caliber and enhancement. Esophagus is normal in caliber, without hiat al hernia. Bones and chest wall: No suspicious bony lesions. Ribs and thoracic spine appear intact throughout. Thyroid gland is within normal limits where visualized. No axillary or supraclavicular adenopathy. Abdomen: Visualized upper abdominal solid organs appear normal in the early arterial phase of enhanc ement. IMPRESSION: 1. No pulmonary embolus. 2. 6 mm right middle lobe sub-solid nodule. Recommend followup imaging based on criteria outlined bel ow. Fleischner Society criteria for SOLID lung nodule followup. Nodule size (mm)Low-risk patientHigh-risk patient<6 (single or multiple)No routine followup.Optional CT at 12 months. 6-8 (single or multiple)CT at 6-12 months, then optional CT at 18-24 mo.CT at 6-12 m onths, then CT at 18-24 months. >8 (single)CT, PET-CT, or biopsy at 3 months. Same as for low-risk p ts. >8 (multiple)CT at 3-6 months, then optional CT at 18-24 mo.CT at 3-6 months, then CT at 18-24 m onths. Fleischner Society criteria for SUB-SOLID lung nodule followup. Solitary pure ground-glass nodules<6 mm (ground glass or part solid)No followup needed. 6 mm or larg er (ground glass)CT at 6-12 months to confirm persistence, then CT every 2 years until 5 years.6 mm o r larger (part solid)CT at 3-6 months to confirm persistence, then annual CT until 5 years if unchang ed and solid component remains <6 mm. Multiple sub-solid nodules<6 mmCT at 3-6 months, then CT consi jossue at 2 & 4 years for high risk patients. [address] at 3-6 months. Subsequent management b ased on most suspicious lesions. Recommendations do not apply to lung cancer screening, patients with immunosuppression, or patients with known primary cancer. Dictated by: Britney Richter MD, PhD on 02/23/2017 at 8:12 Approved by: Britney Richter MD, PhD on 02/23/2017 at 8:15
--- NOTE | 2017-02-23 08:55 | DRSVH ---
PROCEDURE: US ABDOMEN, LIMITED ([id number]) INDICATIONS: right upper quadrant and chest pain TECHNIQUE: Real-time focused scanning was performed of the abdomen, with image documentation. COMPARISON: None. FINDINGS: No gallstones or gallbladder wall thickening. Reverberation artifact noted in the anterior gallbladder wall. No intrahepatic or extrahepatic dilatation. Extrahepatic bile duct measures 5 mm. IMPRESSION: 1. No evidence of cholelithiasis or cholecystitis. 2. Probable gallbladder adenomyomatosis. Dictated by: Britney Richter MD, PhD on 02/23/2017 at 8:52 Approved by: Britney Richter MD, PhD on 02/23/2017 at 8:53
--- NOTE | 2017-02-23 09:14 | DRSVH ---
PROCEDURE: X-RAY CHEST ONE VIEW, PORTABLE ([id number]) INDICATIONS: chest pain TECHNIQUE: One view of the chest was acquired. COMPARISON: None. FINDINGS: Surgical changes and devices: None. Lungs and pleura: No pleural effusions or pneumothorax. Lungs are clear. Mediastinum: Mediastinal contours appear normal. Heart size is normal. Bones and chest wall: No suspicious bony lesions. Overlying soft tissues appear unremarkable. IMPRESSION: No acute cardiopulmonary disease process. Dictated by: Britney Richter MD, PhD on 02/23/2017 at 9:12 Approved by: Britney Richter MD, PhD on 02/23/2017 at 9:13
== END 2017-02-23 02:55 | disposition home or self-care (01) ==
LOC: SED 22:28
DX: R07.2 Precordial pain (principal); R91.1 Solitary pulmonary nodule; R93.2 Abnormal findings on diagnostic imaging of liver and biliary tract; J45.909 Unspecified asthma, uncomplicated; E11.9 Type 2 diabetes mellitus without complications; E78.5 Hyperlipidemia, unspecified; F17.200 Nicotine dependence, unspecified, uncomplicated; Z79.84 Long term (current) use of oral hypoglycemic drugs
CPT/HCPCS: 36415; 71010; 71275; 76705; 80053; 83735; 84484; 84702; 85025; 85378; 93005; 96374; 96375; 99285; J1170; J2405; Q9967